=== PATIENT | male | born 1960 | race Caucasian/White ===

== ENCOUNTER 2023-08-10 09:35 | Outpatient (RCR) | payer OTHER, SELFPAY | END 2023-08-10 23:59 | disposition home or self-care (01) | LOC: CRHB 09:35 | PROVIDERS: ATTENDING PHYSICIAN Internal Medicine Cardiovascular Disease | DX: I25.10 Atherosclerotic heart disease of native coronary artery without angina pectoris (principal); Z95.1 Presence of aortocoronary bypass graft; I25.2 Old myocardial infarction | CPT/HCPCS: 93797; 93798 ==

== ENCOUNTER 2023-09-07 08:42 | Outpatient (RCR) | payer OTHER, SELFPAY | END 2023-09-07 23:59 | disposition home or self-care (01) | LOC: CRHB 08:42 | PROVIDERS: ATTENDING PHYSICIAN Internal Medicine Cardiovascular Disease | DX: I25.10 Atherosclerotic heart disease of native coronary artery without angina pectoris (principal); Z95.1 Presence of aortocoronary bypass graft; I25.2 Old myocardial infarction | CPT/HCPCS: 93797; 93798 ==

== ENCOUNTER 2023-09-28 08:48 | Outpatient (RCR) | payer OTHER, SELFPAY | END 2023-09-28 23:59 | disposition home or self-care (01) | LOC: CRHB 08:48 | PROVIDERS: ATTENDING PHYSICIAN Internal Medicine Cardiovascular Disease | DX: Z95.1 Presence of aortocoronary bypass graft (principal) | CPT/HCPCS: 93797; 93798 ==

== ENCOUNTER → 2023-09-30 15:10 | Outpatient (REF) | payer OTHER, SELFPAY | LOC: HWRAD 15:10 | PROVIDERS: ATTENDING PHYSICIAN Thoracic Surgery (Cardiothoracic Vascular Surgery); FAMILY PHYSICIAN Family Medicine; REFERRING PHYSICIAN Internal Medicine Cardiovascular Disease | DX: Z98.890 Other specified postprocedural states (principal); L76.82 Other postprocedural complications of skin and subcutaneous tissue | CPT/HCPCS: 71250 ==

== ENCOUNTER → 2023-10-06 12:50 | Outpatient (REF) | payer OTHER, SELFPAY | LOC: RCS 12:50 | PROVIDERS: ATTENDING PHYSICIAN Thoracic Surgery (Cardiothoracic Vascular Surgery) | DX: Z98.890 Other specified postprocedural states (principal) | CPT/HCPCS: 93306 ==

== ENCOUNTER 2024-05-11 09:44 | Outpatient (RCR) | payer OTHER, SELFPAY | END 2024-05-11 23:59 | disposition home or self-care (01) | LOC: CRHB 09:44 | PROVIDERS: ATTENDING PHYSICIAN Internal Medicine Cardiovascular Disease | DX: I50.22 Chronic systolic (congestive) heart failure (principal) | CPT/HCPCS: 93797; 93798 ==

== ENCOUNTER 2024-06-06 09:29 | Outpatient (RCR) | payer OTHER, SELFPAY | END 2024-06-06 23:59 | disposition home or self-care (01) | LOC: CRHB 09:29 | PROVIDERS: ATTENDING PHYSICIAN Internal Medicine Cardiovascular Disease; FAMILY PHYSICIAN Family Medicine | DX: I50.22 Chronic systolic (congestive) heart failure (principal) | CPT/HCPCS: 93797; 93798 ==

== ENCOUNTER 2024-06-15 08:58 | Outpatient (RCR) | payer OTHER, SELFPAY | END 2024-06-15 23:59 | disposition home or self-care (01) | LOC: CRHB 08:58 | PROVIDERS: ATTENDING PHYSICIAN Internal Medicine Cardiovascular Disease; FAMILY PHYSICIAN Family Medicine | DX: I50.22 Chronic systolic (congestive) heart failure (principal) | CPT/HCPCS: 93797; 93798 ==